=== PATIENT | female | born 1935 | race Hispanic/Latino ===

== ENCOUNTER 2017-09-21 13:01 | Outpatient (CLI) | payer MEDICARE | END 2017-09-21 13:02 | disposition home or self-care (01) | LOC: BICMAMMO 13:01 | PROVIDERS: ATTEND Specialist | DX: Z12.31 Encounter for screening mammogram for malignant neoplasm of breast (principal); R92.1 Mammographic calcification found on diagnostic imaging of breast; Z85.3 Personal history of malignant neoplasm of breast; Z80.3 Family history of malignant neoplasm of breast | CPT/HCPCS: 77063; 77067 ==

== ENCOUNTER 2018-11-02 14:08 | Outpatient (CLI) | payer MEDICARE ==
--- NOTE | 2018-11-02 17:36 | MMO ---
unilateral right MAMMO Screen [facility]. CLINICAL HISTORY: Patient is 83 years old and is seen for screening. The patient has the following family history of breast cancer: daughter, at age 45, malignant (generic). The patient has a history of malignant (generic) in 1998. The patient has a history of left Mastectomy in 1998 and bilateral Excisional Biopsy in 1991 - benign. VIEWS: The views performed were: unilateral right craniocaudal with tomosynthesis and mediolateral oblique with tomosynthesis. FILMS COMPARED: The present examination has been compared to prior imaging studies performed at [facility] on 04/24/2014, 06/04/2015, 07/31/2016 and 09/21/2017. MAMMOGRAM FINDINGS: There are scattered fibroglandular densities. There are no suspicious masses, suspicious calcifications, or new areas of architectural distortion. IMPRESSION: THERE IS NO MAMMOGRAPHIC EVIDENCE OF MALIGNANCY. A ROUTINE FOLLOW-UP MAMMOGRAM IN 1 YEAR IS RECOMMENDED. THE RESULTS OF THIS EXAM WERE SENT TO THE PATIENT. ACR BI-RADS Category 1 - Negative MAMMOGRAPHY NOTE: 1. A negative mammogram report should not delay a biopsy if a dominant of clinically suspicious mass is present. 2. Approximately 10% to 15% of breast cancers are not detected by mammography. 3. Adenosis and dense breasts may obscure an underlying neoplasm. Reported by: HEIDI MUKHERJEE MD Electonically Signed: [id number]
== END 2018-11-02 14:09 | disposition home or self-care (01) ==
LOC: BICMAMMO 14:08
PROVIDERS: ATTEND Specialist
DX: Z12.31 Encounter for screening mammogram for malignant neoplasm of breast (principal); Z85.3 Personal history of malignant neoplasm of breast; Z90.12 Acquired absence of left breast and nipple; Z80.3 Family history of malignant neoplasm of breast
CPT/HCPCS: 77063; 77067

== ENCOUNTER 2019-01-20 13:18 | Outpatient (CLI) | payer MEDICARE ==
--- NOTE | 2019-01-20 14:18 | RAD ---
SACRUM AND COCCYX: INDICATION: Low back pain and sacral pain. FINDINGS: SI joint appear normal and symmetric. Mild degenerative sclerosis seen bilaterally. Sacrum and cocc yx otherwise unremarkable. No fracture or acute abnormality. Degenerative change at the lumbosacral region. Rounded amorphous calcification in the pelvis is consistent with a calcified fibroid uterus . IMPRESSION: No acute finding. POS: [facility]
--- NOTE | 2019-01-20 14:21 | RAD ---
LUMBAR SPINE 2 VIEWS: HISTORY: Back pain. FINDINGS: Lumbar vertebrae maintain height and alignment. Loss of disk space at L5-S1. Degenerative spurring is seen at all levels, most pronounced at L5-S1. Prominent facet hypertrophy is noted. No evidence of spondylolisthesis. Rounded calcification in the pelvis to the left of midline is consistent with a calcified fibroid [place] [facility]. IMPRESSION: Moderate degenerative changes of the lumbar spine as described. POS: [facility]
== END 2019-01-20 13:19 | disposition home or self-care (01) ==
LOC: BICRAD 13:18
PROVIDERS: ATTEND Specialist
DX: M54.5 Low back pain (principal); M47.816 Spondylosis without myelopathy or radiculopathy, lumbar region
CPT/HCPCS: 72100; 72220

== ENCOUNTER 2020-01-10 13:20 | Outpatient (CLI) | payer MEDICARE ==
--- NOTE | 2020-01-10 14:46 | MMO ---
Bilateral MAMMO Bilat Screen [facility]. CLINICAL HISTORY: Patient is 84 years old and is seen for screening. The patient has the following family history of breast cancer: daughter, at age 45, malignant (generic). The patient has a history of malignant (generic) in 1998. The patient has a history of left Mastectomy in 1998 and bilateral Excisional Biopsy in 1991 - benign. VIEWS: The views performed were: bilateral craniocaudal with tomosynthesis and bilateral mediolateral oblique with tomosynthesis. FILMS COMPARED: The present examination has been compared to prior imaging studies performed at [place] [facility] on 06/04/2015, 07/31/2016, 09/21/2017 and 11/02/2018. This study has been interpreted with the assistance of computer-aided detection. MAMMOGRAM FINDINGS: There are scattered fibroglandular densities. Finding 1: There are stable benign appearing calcifications seen in the right breast. Finding 2: There are stable benign appearing densities seen in the right breast. There are no suspicious masses, suspicious calcifications, or new areas of architectural distortion. IMPRESSION: THERE IS NO MAMMOGRAPHIC EVIDENCE OF MALIGNANCY. A ROUTINE FOLLOW-UP MAMMOGRAM IN 1 YEAR IS RECOMMENDED. THE RESULTS OF THIS EXAM WERE SENT TO THE PATIENT. ACR BI-RADS Category 2 - Benign finding MAMMOGRAPHY NOTE: 1. A negative mammogram report should not delay a biopsy if a dominant of clinically suspicious mass is present. 2. Approximately 10% to 15% of breast cancers are not detected by mammography. 3. Adenosis and dense breasts may obscure an underlying neoplasm. Reported by: MOY VASQUEZ MD Electonically Signed: [id number]
== END 2020-01-10 13:21 | disposition home or self-care (01) ==
LOC: BICMAMMO 13:20
PROVIDERS: ATTEND Specialist
DX: Z12.31 Encounter for screening mammogram for malignant neoplasm of breast (principal); Z85.3 Personal history of malignant neoplasm of breast; Z80.3 Family history of malignant neoplasm of breast; Z90.12 Acquired absence of left breast and nipple; Z91.89 Other specified personal risk factors, not elsewhere classified
CPT/HCPCS: 77063; 77067

== ENCOUNTER 2020-08-07 10:17 | Inpatient (IN) | payer MEDICARE ==
[2020-08-07 11:59] LABS: Hemoglobin 12.1 g/dL (12.0-16.0); Mean Corpuscular HGB CONC 32.5 g/dL (32.0-36.0); Mean Corpuscular Hemoglobin 31.5 pg (27.0-31.0); Mean Corpuscular Volume 96.9 fL (78.0-98.0); Mean Platelet Volume 8.6 fL (7.4-10.4); Platelet Count 210 thou/uL (130-400); RBC Distribution Width 11.7 % (11.5-14.5); Red Blood Cell (RBC) Count 3.83 mill/uL (4.20-5.40); White Blood Cell (WBC) Count 10.2 thou/uL (4.8-10.8)
[2020-08-07 12:12] LABS: ALT (SGPT) 163 U/L (8-55); AST (SGOT) 94 U/L (5-34); Albumin 3.3 g/dL (3.4-4.8); Alkaline Phosphatase 106 U/L (40-110); Anion Gap 15 mmol/L (10-20); BUN (Urea Nitrogen) 25 mg/dL (9.8-20.1); CK (CPK) 145 U/L (29-168); Calc. Creatinine Clearance 0 mL/min (70-130); Calcium 8.3 mg/dL (7.8-10.44); Carbon Dioxide 25 mmol/L (23-31); Chloride 95 mmol/L (98-107); Globulin 3.8 g/dL (2.4-3.5); Glucose 204 mg/dL (83-110); Lipase 47 U/L (8-78); Magnesium 2.4 mg/dL (1.6-2.6); Potassium 4.3 mmol/L (3.5-5.1); Protein, Total 7.1 g/dL (5.8-8.1); Sodium 131 mmol/L (136-145)
[2020-08-07 12:36] LABS: CKMB 2.1 ng/mL (0-6.6)
[2020-08-07 12:38] LABS: INR-International Normal Ratio 1.2; PTT 33.7 sec (22.9-36.1); Prothrombin Time 15.1 sec (12.0-14.7)
[2020-08-07 12:42] LABS: Band 26 % (5-11); Lymphocytes 7 % (21-51); MDiff Complete? YES; Monocytes 13 % (0-10); Neutrophil 54 % (42-75); Platelet Morphology Comment Appears Adequate; Polychromasia SLIGHT = 2-3 cells (100X) (0-2/hpf); Toxic Granulation SLIGHT; Vacuoles SLIGHT
[2020-08-07 12:47] LABS: D-Dimer Test 5.6 *mcg/mL (0.27-0.43)
[2020-08-07] MEDS ORDERED: cefTRIAXone\\ROCEPHIN 2 GM VIAL ONE (13:27)
[2020-08-07] MEDS ORDERED: Enoxaparin Sodium 80 MG/0.8 ML SYRINGE ONE (13:27)
[2020-08-07 13:35] LABS: Bacteria/HPF None Seen HPF (None Seen); Bilirubin Negative (Negative); Blood, Urine Trace (Negative); Clarity Clear (Clear); Glucose, Urine (Dipstick) Normal (Negative); Ketone, Urine Negative (Negative); Leukocyte 25 Leu/uL (Negative); Nitrite Negative (Negative); Protein, Urine (Dipstick) 20 mg/dL (Neg-Trace); RBC/HPF 0-3 HPF (0-3); Specific Gravity, Urine 1.008 (1.002-1.036); Squamous Epithelial None Seen HPF (0-3); Urobilinogen Normal mg/dL (Less than 2); WBC/HPF 0-3 HPF (0-3)
[2020-08-07] MEDS ORDERED: Iopamidol-370 76% 500 ML 1 ML ONE (14:57)
[2020-08-07] MEDS ORDERED: Sterile Water 10 ML VIAL FS PRN (15:15)
[2020-08-07] MEDS ORDERED: Ampicillin 500 MG VIAL SLOW IVP SCH (15:15)
[2020-08-07] MEDS ORDERED: Ondansetron PF 4 MG/2 ML Vial ONE (15:33)
[2020-08-07 16:28] LABS: HBCM Index 0.09 S/CO (0-0.79); HBSAg Index 0.15 S/CO (0-0.99); Hep A IgM AB Non-Reactive (NonReactive); Hep A IgM S/CO 0.55 S/CO (0-0.79); Hep B Surf Ag Non-Reactive S/CO (NonReactive); Hep C IgG Ab Non-Reactive (NonReactive); Hep C Index 0.08 S/CO (0-0.79); Hepatitis B Core IgM Abs Non-Reactive (NonReactive); Thyroid Stimulating Hormone 0.8214 uIU/mL (0.35-4.94)
[2020-08-07 16:32] LABS: Troponin I 0.345 ng/mL (< 0.028)
[2020-08-07 17:20] VITALS: BMI 32.7
[2020-08-07] MEDS ORDERED: Acetaminophen 325 MG TAB PO PRN (18:46)
[2020-08-07] MEDS ORDERED: Ondansetron PF 4 MG/2 ML Vial IVP PRN (18:53)
[2020-08-07] MEDS ORDERED: Albuterol Sulfate 2.5 mg/3 ml Neb NEB PRN (18:56)
[2020-08-07] MEDS ORDERED: Dextrose 5% in Water 1,000 ML IV PRN (19:00)
[2020-08-07] MEDS ORDERED: Insulin Regular 300 UNITS/3 ML VIAL SC PRN (19:00)
[2020-08-07] MEDS ORDERED: Aspirin Chewable 81 MG TAB PO SCH (19:00)
[2020-08-07] MEDS ORDERED: Dextrose 50% Abboject 50 ML SYRINGE IVP PRN (19:00)
[2020-08-07 19:06] LABS: Troponin I 0.358 ng/mL (< 0.028)
[2020-08-07] MEDS: Sodium Chloride 0.9% 1,000 ML IV SCH (20:02)
[2020-08-07] MEDS: Azithromycin 500 MG in Sodium Chloride 0.9% 250 ML 250 ML IVPB SCH (20:57)
[2020-08-07] MEDS ORDERED: HumuLIN 70/30 (300 UNITS/3 ML VIAL) SC SCH (21:00)
[2020-08-08 01:01] LABS: SARS-CoV-2 PCR by NAA Not Detected (NotDetected)
[2020-08-08 04:51] LABS: #Lymphocytes 1.2 thou/uL (1.20-3.40); #Monocytes 1.3 thou/uL (0.11-0.59); #Neutrophils 7.4 thou/uL (1.40-6.50); %Basophils 0.2 % (0.0-1.0); %Eosinophils 0.2 % (0.0-10.0); %Lymphocytes 12.4 % (21.0-51.0); %Monocytes 12.6 % (0.0-10.0); %Neutrophils 74.6 % (42.0-75.0); Hemoglobin 10.5 g/dL (12.0-16.0); Mean Corpuscular HGB CONC 31.2 g/dL (32.0-36.0); Mean Corpuscular Hemoglobin 30.4 pg (27.0-31.0); Mean Corpuscular Volume 97.3 fL (78.0-98.0); Mean Platelet Volume 8.3 fL (7.4-10.4); Platelet Count 198 thou/uL (130-400); RBC Distribution Width 11.9 % (11.5-14.5); Red Blood Cell (RBC) Count 3.46 mill/uL (4.20-5.40)
[2020-08-08 04:58] LABS: Hemoglobin A1c 5.8 % (4.0-6.0)
[2020-08-08 05:15] LABS: Anion Gap 13 mmol/L (10-20); BUN (Urea Nitrogen) 25 mg/dL (9.8-20.1); Calc. Creatinine Clearance 45 mL/min (70-130); Calcium 7.6 mg/dL (7.8-10.44); Carbon Dioxide 26 mmol/L (23-31); Chloride 99 mmol/L (98-107); Glucose 148 mg/dL (83-110); Potassium 4.6 mmol/L (3.5-5.1); Sodium 133 mmol/L (136-145)
[2020-08-08] MEDS: Sodium Chloride 0.9% 1,000 ML IV SCH ×3 (07:19→22:59)
[2020-08-08] MEDS ORDERED: Zolpidem Tartrate 5 MG TAB PO PRN (07:56)
[2020-08-08] MEDS: Aspirin Chewable 81 MG TAB PO SCH (08:22)
[2020-08-08] MEDS: Gabapentin 300 MG CAP PO SCH ×2 (08:23→16:54)
[2020-08-08] MEDS: Enoxaparin Sodium 40 MG/0.4 ML SYRINGE SC SCH (08:24)
[2020-08-08] MEDS: Lantus 1000 UNITS/10 ML VIAL SC SCH (08:32)
[2020-08-08] MEDS: HumuLIN 70/30 (300 UNITS/3 ML VIAL) SC SCH ×2 (08:34→22:18)
[2020-08-08] MEDS ORDERED: HumuLIN 70/30 (300 UNITS/3 ML VIAL) SC SCH (09:00)
[2020-08-08] MEDS: Losartan 25 MG TAB PO SCH (12:39)
[2020-08-08] MEDS ORDERED: cefTRIAXone\\ROCEPHIN 1 GM in Sodium Chloride 0.9% 100 ML IVPB SCH (14:00)
[2020-08-08] MEDS: Azithromycin 500 MG in Sodium Chloride 0.9% 250 ML 250 ML IVPB SCH (22:19)
[2020-08-09 05:14] LABS: #Eosinphils 0.1 thou/uL (0.0-0.7); #Lymphocytes 1.3 thou/uL (1.20-3.40); #Monocytes 0.9 thou/uL (0.11-0.59); #Neutrophils 6.7 thou/uL (1.40-6.50); %Basophils 0.2 % (0.0-1.0); %Eosinophils 0.8 % (0.0-10.0); %Lymphocytes 14.4 % (21.0-51.0); %Monocytes 10.4 % (0.0-10.0); %Neutrophils 74.2 % (42.0-75.0); Hemoglobin 10.2 g/dL (12.0-16.0); Mean Corpuscular HGB CONC 31.5 g/dL (32.0-36.0); Mean Corpuscular Volume 98.3 fL (78.0-98.0); Mean Platelet Volume 8.2 fL (7.4-10.4); Platelet Count 219 thou/uL (130-400); RBC Distribution Width 11.9 % (11.5-14.5); White Blood Cell (WBC) Count 9.1 thou/uL (4.8-10.8)
[2020-08-09 05:44] LABS: Anion Gap 12 mmol/L (10-20); BUN (Urea Nitrogen) 22 mg/dL (9.8-20.1); Calc. Creatinine Clearance 57 mL/min (70-130); Calcium 7.7 mg/dL (7.8-10.44); Carbon Dioxide 24 mmol/L (23-31); Chloride 105 mmol/L (98-107); Cholesterol 80 mg/dl (< 200 Desired); Glucose 123 mg/dL (83-110); HDL Cholesterol 20 mg/dL (>60 Neg Risk); LDL Cholesterol, Calculated 45 mg/dL; Potassium 4.4 mmol/L (3.5-5.1); Sodium 137 mmol/L (136-145); Triglycerides 74 mg/dL (Less than 150)
[2020-08-09] MEDS: Azithromycin 250 MG TAB PO SCH (08:48)
[2020-08-09] MEDS: Cefdinir 300 MG CAP PO SCH ×2 (08:48→21:36)
[2020-08-09] MEDS: Enoxaparin Sodium 40 MG/0.4 ML SYRINGE SC SCH (08:48)
[2020-08-09] MEDS: Aspirin Chewable 81 MG TAB PO SCH (08:49)
[2020-08-09] MEDS: Gabapentin 300 MG CAP PO SCH ×2 (08:50→14:53)
[2020-08-09] MEDS: Sodium Chloride 0.9% 1,000 ML IV SCH ×2 (09:15→22:45)
[2020-08-09] MEDS: Losartan 25 MG TAB PO SCH (10:33)
[2020-08-09] MEDS: Lantus 1000 UNITS/10 ML VIAL SC SCH (11:15)
[2020-08-09] MEDS: HumuLIN 70/30 (300 UNITS/3 ML VIAL) SC SCH ×2 (11:17→21:38)
[2020-08-10 04:52] LABS: Hemoglobin 10.2 g/dL (12.0-16.0); Mean Corpuscular HGB CONC 31.5 g/dL (32.0-36.0); Mean Corpuscular Volume 98.5 fL (78.0-98.0); Mean Platelet Volume 7.8 fL (7.4-10.4); Platelet Count 237 thou/uL (130-400); Red Blood Cell (RBC) Count 3.28 mill/uL (4.20-5.40); White Blood Cell (WBC) Count 9.5 thou/uL (4.8-10.8)
[2020-08-10 05:26] LABS: Band 7 % (5-11); Eosinophils 4 % (0-10); Lymphocytes 18 % (21-51); MDiff Complete? YES; Metamyelocyte 1 % (0-0); Monocytes 11 % (0-10); Neutrophil 59 % (42-75)
[2020-08-10] MEDS: Sodium Chloride 0.9% 1,000 ML IV SCH (08:21)
[2020-08-10] MEDS: Aspirin Chewable 81 MG TAB PO SCH (08:22)
[2020-08-10] MEDS: Losartan 25 MG TAB PO SCH (08:22)
[2020-08-10] MEDS: Gabapentin 300 MG CAP PO SCH (08:22)
[2020-08-10] MEDS: Cefdinir 300 MG CAP PO SCH (08:22)
[2020-08-10] MEDS: Azithromycin 250 MG TAB PO SCH (08:22)
[2020-08-10] MEDS: Enoxaparin Sodium 40 MG/0.4 ML SYRINGE SC SCH (08:31)
[2020-08-10] MEDS: HumuLIN 70/30 (300 UNITS/3 ML VIAL) SC SCH (08:33)
[2020-08-10] MEDS: Lantus 1000 UNITS/10 ML VIAL SC SCH (08:34)
[2020-08-10 11:53] VITALS: BP 118/85; TEMP 98.1
== END 2020-08-10 16:30 | disposition home or self-care (01) | DRG 193 ==
LOC: ERS 10:17 → 2SE 14:57
PROVIDERS: ADMIT Specialist; ATTEND Specialist
DX: J18.1 Lobar pneumonia, unspecified organism (principal); I21.A1 Myocardial infarction type 2; E87.1 Hypo-osmolality and hyponatremia; K92.2 Gastrointestinal hemorrhage, unspecified; E11.9 Type 2 diabetes mellitus without complications; I10 Essential (primary) hypertension; E78.5 Hyperlipidemia, unspecified; Z85.3 Personal history of malignant neoplasm of breast; Z90.49 Acquired absence of other specified parts of digestive tract; Z90.12 Acquired absence of left breast and nipple; Z88.2 Allergy status to sulfonamides; Z88.1 Allergy status to other antibiotic agents; Z79.4 Long term (current) use of insulin; D64.9 Anemia, unspecified
CPT/HCPCS: 36415; 36416; 71045; 71046; 71275; 80048; 80053; 80061; 80074; 81003; 81015; 82274; 82550; 82553; 83036; 83605; 83690; 83735; 83880; 84443; 84484; 85025; 85379; 85610; 85730; 87040; 87086; 87635; 93005; 93306; 96365; 96372; 96375; J0290; J0456; J0696; J1650; J1815; J2405; J3490; J7050; Q9967; U0003; U0005

== ENCOUNTER 2021-04-01 13:16 | Outpatient (CLI) | payer MEDICARE | END 2021-04-01 13:17 | disposition home or self-care (01) | LOC: BICMAMMO 13:16 | PROVIDERS: ATTEND Specialist | DX: Z12.31 Encounter for screening mammogram for malignant neoplasm of breast (principal); Z80.3 Family history of malignant neoplasm of breast; Z85.3 Personal history of malignant neoplasm of breast; Z90.12 Acquired absence of left breast and nipple; Z91.89 Other specified personal risk factors, not elsewhere classified | CPT/HCPCS: 77063; 77067 ==

== ENCOUNTER 2021-12-01 13:24 | Outpatient (CLI) | payer MEDICARE | END 2021-12-01 13:25 | disposition home or self-care (01) | LOC: BICMAMMO 13:24 | PROVIDERS: ATTEND Specialist | DX: M85.851 Other specified disorders of bone density and structure, right thigh (principal); M85.852 Other specified disorders of bone density and structure, left thigh | CPT/HCPCS: 77080 ==

== ENCOUNTER 2022-11-09 13:41 | Outpatient (CLI) | payer MEDICARE | END 2022-11-09 13:42 | disposition home or self-care (01) | LOC: RAD 13:41 | PROVIDERS: ATTEND Specialist | DX: M54.50 Low back pain, unspecified (principal); M47.816 Spondylosis without myelopathy or radiculopathy, lumbar region; I70.90 Unspecified atherosclerosis | CPT/HCPCS: 72100 ==

== ENCOUNTER 2024-02-14 14:08 | Inpatient (IN) | payer OTHER, MEDICARE ==
[2024-02-14 16:48] LABS: #Basophils 0.03 10x3/uL (0.0-0.2); %Basophils 0.3 % (0.0-1.0); %Monocytes 7.6 % (0.0-10.0); %Neutrophils 74.9 % (42.0-75.0); Hematocrit 38.6 % (36.0-47.0); Hemoglobin 12.5 g/dL (12.0-16.0); Mean Corpuscular HGB CONC 32.4 g/dL (32.0-36.0); Mean Corpuscular Hemoglobin 29.3 pg (27.0-31.0); Mean Corpuscular Volume 90.6 fL (78.0-98.0); Mean Platelet Volume 10.3 fL (7.4-10.4); Platelet Count 205 10x3/uL (130-400); RBC Distribution Width 14.5 % (11.5-14.5); Red Blood Cell (RBC) Count 4.26 mill/uL (4.20-5.40)
[2024-02-14 17:09] LABS: Troponin I 0.018 ng/mL (< 0.028)
[2024-02-14 18:13] LABS: ALT (SGPT) 52 U/L (8-55); AST (SGOT) 67 U/L (5-34); Albumin 3.5 g/dL (3.4-4.8); Alkaline Phosphatase 63 U/L (40-110); Anion Gap 16 mmol/L (10-20); BUN (Urea Nitrogen) 28 mg/dL (9.8-20.1); Bilirubin, Total 0.4 mg/dL (0.2-1.2); Calc. Creatinine Clearance 0 mL/min (70-130); Calcium 9.5 mg/dL (7.8-10.44); Carbon Dioxide 23 mmol/L (23-31); Chloride 104 mmol/L (98-107); Estimated GFR 38; Globulin 4.2 g/dL (2.4-3.5); Glucose 132 mg/dL (83-110); Potassium 4.5 mmol/L (3.5-5.1); Protein, Total 7.7 g/dL (5.8-8.1); Sodium 138 mmol/L (136-145)
[2024-02-14] MEDS ORDERED: Ondansetron PF 4 MG/2 ML Vial IVP PRN (21:20)
[2024-02-14] MEDS ORDERED: Ondansetron ODT 4 MG TAB PO PRN (21:20)
[2024-02-14] MEDS ORDERED: Acetaminophen 325 MG TAB PO PRN (21:20)
[2024-02-15] MEDS ORDERED: Ondansetron PF 4 MG/2 ML Vial IVP PRN (00:18)
[2024-02-15] MEDS ORDERED: Acetaminophen 650 MG Suppository PR PRN (00:18)
[2024-02-15 03:06] LABS: Bacteria/HPF 3+ HPF (None Seen); Bilirubin Negative (Negative); Blood, Urine 1+ (Negative); CAUTI Indications for Culture Pelvic or flank pain; Clarity Turbid (Clear); Glucose, Urine (Dipstick) Normal (Negative); Ketone, Urine Negative (Negative); Leukocyte 75 Leu/uL (Negative); Nitrite Negative (Negative); Protein, Urine (Dipstick) 50 mg/dL (Neg-Trace); RBC/HPF 0-3 HPF (0-3); Specific Gravity, Urine 1.007 (1.002-1.036); Squamous Epithelial None Seen HPF (0-3); Urobilinogen Normal mg/dL (Less than 2); pH, Urine 5.5 (5.0-9.0)
[2024-02-15 03:08] LABS: Urine Culture Reflex Yes Yes
[2024-02-15] MEDS ORDERED: Ondansetron PF 4 MG/2 ML Vial ONE ×2 (04:13→16:13)
[2024-02-15] MEDS: Ondansetron ODT 4 MG TAB PO PRN (04:19)
[2024-02-15] MEDS ORDERED: cefTRIAXone (ROCEPHIN) 1 GM VIAL ONE (04:20)
[2024-02-15] MEDS ORDERED: Sodium Chloride 0.9% 100 ML ONE (04:20)
[2024-02-15] MEDS: cefTRIAXone\\ROCEPHIN 1 GM in Sodium Chloride 0.9% 100 ML IVPB SCH (04:23)
[2024-02-15] MEDS ORDERED: Atropine Sulfate 1 mg/10 ml Syringe IVP SCH (04:45)
[2024-02-15 06:24] LABS: #Basophils 0.03 10x3/uL (0.0-0.2); %Basophils 0.4 % (0.0-1.0); %Eosinophils 1.7 % (0.0-10.0); %Lymphocytes 18.7 % (21.0-51.0); %Monocytes 9.7 % (0.0-10.0); %Neutrophils 69.1 % (42.0-75.0); Hematocrit 34.8 % (36.0-47.0); Hemoglobin 11.2 g/dL (12.0-16.0); Mean Corpuscular HGB CONC 32.2 g/dL (32.0-36.0); Mean Corpuscular Volume 90.2 fL (78.0-98.0); Mean Platelet Volume 10.2 fL (7.4-10.4); Platelet Count 183 10x3/uL (130-400); RBC Distribution Width 14.3 % (11.5-14.5); Red Blood Cell (RBC) Count 3.86 mill/uL (4.20-5.40)
[2024-02-15 06:36] LABS: Anion Gap 11 mmol/L (10-20); BUN (Urea Nitrogen) 24 mg/dL (9.8-20.1); Calc. Creatinine Clearance 103 mL/min (70-130); Calcium 8.6 mg/dL (7.8-10.44); Carbon Dioxide 25 mmol/L (23-31); Chloride 107 mmol/L (98-107); Estimated GFR 57; Glucose 156 mg/dL (83-110); Potassium 4.6 mmol/L (3.5-5.1); Sodium 138 mmol/L (136-145)
[2024-02-15] MEDS ORDERED: DOBUTamine 500 mg/250 ml 250 ML ONE (06:42)
[2024-02-15] MEDS ORDERED: DOBUTamine 500 mg/250 ml 250 ML IVPB SCH (06:45)
[2024-02-15] MEDS: DOBUTamine 500 mg/250 ml 500 MG in Premix 1 BAG IVPB SCH (06:52)
[2024-02-15] MEDS: Acetaminophen 325 MG TAB PO SCH (06:53)
[2024-02-15 09:21] VITALS: BMI 30.2
[2024-02-15] MEDS: Famotidine 20 MG TAB PO SCH (09:38)
[2024-02-15] MEDS: Famotidine/PF 20 mg/2ml Vial SLOW IVP SCH (11:32)
[2024-02-15] MEDS ORDERED: DOBUTamine 500 mg/250 ml 500 MG in Premix 1 BAG IVPB SCH ×2 (11:46→13:13)
[2024-02-15] MEDS ORDERED: Atropine Sulfate 1 mg/10 ml Syringe ONE ×2 (13:15→16:19)
[2024-02-15] MEDS ORDERED: EPINEPHrine 1 MG/10 ML Abboject SYRINGE ONE ×2 (13:15→16:18)
[2024-02-15] MEDS ORDERED: Gentamicin 80 MG/2 ML VIAL ONE (14:28)
[2024-02-15] MEDS ORDERED: CEFAZOLIN 1 GM VIAL ONE (14:28)
[2024-02-15] MEDS ORDERED: CEFAZOLIN 2 GM VIAL ONE (14:28)
[2024-02-15] MEDS ORDERED: Lidocaine 1% (PF) 30 ML VIAL ONE (14:28)
[2024-02-15] MEDS ORDERED: Glucagon 1 MG/ML KIT IM PRN (14:35)
[2024-02-15] MEDS ORDERED: Dextrose 50% Abboject 50 ML SYRINGE SLOW IVP PRN (14:35)
[2024-02-15] MEDS ORDERED: Dextrose 5% in Water 1,000 ML IV PRN (14:35)
[2024-02-15] MEDS ORDERED: Insulin Lispro 100 UNIT/ML 10 ML VIAL SC PRN (14:35)
[2024-02-15 14:46] LABS: Magnesium 1.9 mg/dL (1.6-2.6)
[2024-02-15] MEDS ORDERED: Midazolam HCl 2 mg/2 ml Vial ONE (16:51)
[2024-02-15] MEDS ORDERED: fentaNYL 50 mcg/mL 1 mL Vial ONE (17:08)
[2024-02-15] MEDS: Gabapentin 300 MG CAP PO SCH ×2 (20:56→21:00)
[2024-02-15] MEDS: Doxycycline 100 MG CAP PO SCH (20:56)
[2024-02-15] MEDS: Rosuvastatin 10 MG TAB PO SCH (20:57)
[2024-02-15] MEDS: Magnesium 2 GM/50 ML(in water) 2 GM in Premix 1 BAG IVPB SCH (21:04)
[2024-02-15] MEDS ORDERED: Labetalol HCl 100 MG/20 ML VIAL SLOW IVP PRN (21:21)
[2024-02-15] MEDS: hydrALAZINE 20 MG/ML VIAL SLOW IVP PRN (22:02)
[2024-02-15] MEDS: HumuLIN 70/30 100 Unit/ml 10 ml Vial SC SCH (22:43)
[2024-02-16 03:50] LABS: #Basophils Less than 0.03 10x3/uL (0.0-0.2); %Basophils 0.3 % (0.0-1.0); %Eosinophils 1.1 % (0.0-10.0); %Lymphocytes 14.7 % (21.0-51.0); %Monocytes 10.6 % (0.0-10.0); Hematocrit 33.4 % (36.0-47.0); Hemoglobin 10.7 g/dL (12.0-16.0); Mean Corpuscular Hemoglobin 28.8 pg (27.0-31.0); Mean Corpuscular Volume 89.8 fL (78.0-98.0); Mean Platelet Volume 11.1 fL (7.4-10.4); Platelet Count 163 10x3/uL (130-400); RBC Distribution Width 14.7 % (11.5-14.5); Red Blood Cell (RBC) Count 3.72 mill/uL (4.20-5.40)
[2024-02-16 04:04] LABS: Anion Gap 13 mmol/L (10-20); BUN (Urea Nitrogen) 23 mg/dL (9.8-20.1); Calc. Creatinine Clearance 44 mL/min (70-130); Calcium 8.3 mg/dL (7.8-10.44); Carbon Dioxide 25 mmol/L (23-31); Chloride 105 mmol/L (98-107); Estimated GFR 50; Glucose 94 mg/dL (83-110); Magnesium 2.3 mg/dL (1.6-2.6); Potassium 4.4 mmol/L (3.5-5.1); Sodium 139 mmol/L (136-145)
[2024-02-16] MEDS: Ezetimibe 10 MG TAB PO SCH (08:58)
[2024-02-16] MEDS: Calcitriol 0.25 MCG CAP PO SCH (08:58)
[2024-02-16] MEDS: Bisoprolol Fumarate 5 MG TAB PO SCH (08:58)
[2024-02-16] MEDS: NIFEdipine XL 30 MG ER.TAB PO SCH (08:58)
[2024-02-16] MEDS: Aspirin 81 mg Enteric Coated Tablet PO SCH (08:59)
[2024-02-16] MEDS: HumuLIN 70/30 100 Unit/ml 10 ml Vial SC SCH (10:29)
[2024-02-17 04:32] LABS: #Basophils Less than 0.03 10x3/uL (0.0-0.2); %Basophils 0.3 % (0.0-1.0); %Eosinophils 3.6 % (0.0-10.0); %Lymphocytes 21.2 % (21.0-51.0); %Monocytes 12.6 % (0.0-10.0); Hematocrit 33.4 % (36.0-47.0); Hemoglobin 10.5 g/dL (12.0-16.0); Mean Corpuscular HGB CONC 31.4 g/dL (32.0-36.0); Mean Corpuscular Hemoglobin 28.8 pg (27.0-31.0); Mean Corpuscular Volume 91.5 fL (78.0-98.0); Mean Platelet Volume 11.1 fL (7.4-10.4); Platelet Count 156 10x3/uL (130-400); RBC Distribution Width 14.5 % (11.5-14.5); Red Blood Cell (RBC) Count 3.65 mill/uL (4.20-5.40)
[2024-02-17 04:51] LABS: Anion Gap 10 mmol/L (10-20); BUN (Urea Nitrogen) 32 mg/dL (9.8-20.1); Calc. Creatinine Clearance 35 mL/min (70-130); Calcium 8.5 mg/dL (7.8-10.44); Carbon Dioxide 26 mmol/L (23-31); Chloride 105 mmol/L (98-107); Estimated GFR 40; Glucose 85 mg/dL (83-110); Magnesium 2.3 mg/dL (1.6-2.6); Potassium 4.3 mmol/L (3.5-5.1); Sodium 137 mmol/L (136-145)
[2024-02-17] MEDS: Sodium Chloride 0.9% 1,000 ML IV SCH (09:25)
[2024-02-17] MEDS: Insulin Lispro 100 UNIT/ML 10 ML VIAL SC PRN (13:05)
[2024-02-17 19:13] VITALS: TEMP 98.3
[2024-02-17] MEDS ORDERED: Ciprofloxacin 500 MG TAB PO SCH (20:00)
[2024-02-17 20:07] VITALS: BP 147/73
[2024-02-18] MEDS ORDERED: HumuLIN 70/30 100 Unit/ml 10 ml Vial SC SCH (09:00)
== END 2024-02-17 20:08 | DRG 243 ==
LOC: ERS 14:08 → ERHOLD 21:20 → PCU 02-15 08:57 → CCU 02-15 13:26 → OBSVTOIN 02-15 14:41 → 2SE 02-15 23:37
PROVIDERS: ADMIT Student in an Organized Health Care Education/Training Program; ATTEND Internal Medicine
PROC: 0JH606Z Insertion of Pacemaker, Dual Chamber into Chest Subcutaneous Tissue and Fascia, Open Approach (ICD-10-PCS; principal; 2024-02-15)
PROC: 02H63JZ Insertion of Pacemaker Lead into Right Atrium, Percutaneous Approach (ICD-10-PCS; 2024-02-15)
PROC: 02HK3JZ Insertion of Pacemaker Lead into Right Ventricle, Percutaneous Approach (ICD-10-PCS; 2024-02-15)
DX: I44.1 Atrioventricular block, second degree (principal); N17.9 Acute kidney failure, unspecified; N39.0 Urinary tract infection, site not specified; E11.22 Type 2 diabetes mellitus with diabetic chronic kidney disease; N18.1 Chronic kidney disease, stage 1; I12.9 Hypertensive chronic kidney disease with stage 1 through stage 4 chronic kidney disease, or unspecified chronic kidney disease; E78.5 Hyperlipidemia, unspecified; I25.10 Atherosclerotic heart disease of native coronary artery without angina pectoris; Z90.49 Acquired absence of other specified parts of digestive tract; Z88.8 Allergy status to other drugs, medicaments and biological substances; Z98.890 Other specified postprocedural states; I45.10 Unspecified right bundle-branch block; I48.0 Paroxysmal atrial fibrillation; R53.81 Other malaise; R55 Syncope and collapse
CPT/HCPCS: 33208; 36415; 36416; 70450; 71045; 80048; 80053; 81001; 83735; 84484; 85025; 87077; 87086; 87186; 93005; 93010; 93306; 97139; 99152; 99153; C1785; C1898; J0171; J0360; J0461; J0690; J0696; J1250; J1580; J1815; J2250; J2405; J3010; J3475; J7030; Q0162